=== PATIENT | female | born 1935 | race Caucasian/White ===

== ENCOUNTER 2017-12-31 19:29 | Inpatient (IN) | payer MEDICARE, MEDICAID ==
[~2017-12-31] VITALS: Ht 5200 cm; Wt 50.5 kg
[~2017-12-31 19:29] MED LIST: AZIT250T PO
[2017-12-31] MEDS ORDERED: LOSA1TAB36 PO (19:39)
[2017-12-31] MEDS ORDERED: ipratropium/albuterol 3ml nebule NEB ONE (22:55)
[2017-12-31] MEDS ORDERED: methylPREDNISolone sod succ 125mg/2ml vial IV ONE (22:55)
[2017-12-31 23:28] LABS: BASOPHILS # (AUTO) 0.1 X10'3 (0-0.2); BASOPHILS % (AUTO) 0.6 % (0-1); EOSINOPHILS % (AUTO) 0 % (0-6); HEMATOCRIT 41.8 % (35.0-45.0); HEMOGLOBIN 14.1 g/dl (12.0-16.0); LYMPHOCYTES # (AUTO) 1.5 X10'3 (1.1-4.8); LYMPHOCYTES % (AUTO) 10.9 % (21-51); MEAN CORPUSCULAR HEMOGLOBIN 28.3 PG (27.0-31.0); MEAN CORPUSCULAR HGB CONC 33.8 % (33.0-36.5); MEAN CORPUSCULAR VOLUME 83.8 FL (78-98); MEAN PLATELET VOLUME 9.3 FL (7.4-10.4); MONOCYTES # (AUTO) 0.8 X10'3 (0-0.9); MONOCYTES % (AUTO) 6.1 % (2-12); NEUTROPHILS # (AUTO) 11.4 X10'3 (1.8-7.7); NEUTROPHILS % (AUTO) 82.4 % (42-75); PLATELET COUNT 182 X10'3 (140-440); RED BLOOD COUNT 4.99 X10'6 (4.20-5.60); RED CELL DISTRIBUTION WIDTH 21.5 % (11.5-14.5); WHITE BLOOD COUNT 13.9 X10'3 (4.5-11.0)
[2017-12-31 23:40] LABS: PARTIAL THROMBOPLASTIN TIME 30 SECONDS (22-32); PROTHROMBIN TIME 10.4 SECONDS (9.0-12.0)
[2017-12-31] MEDS ORDERED: levoFLOXACIN-Levaquin 500mg/D5 100 ML IV ONE (23:40)
[2017-12-31 23:46] LABS: ALANINE AMINOTRANSFERASE 19 U/L (12-78); ALBUMIN 3.2 G/DL (3.4-5.0); ALBUMIN/GLOBULIN RATIO 0.7 (1.1-1.5); ALKALINE PHOSPHATASE 104 IU/L (46-116); ANION GAP 12 (8-16); ASPARTATE AMINO TRANSFERASE 19 U/L (10-37); BILIRUBIN,TOTAL 0.9 MG/DL (0.1-1.0); BLOOD UREA NITROGEN 32 MG/DL (7-18); BUN/CREATININE RATIO 29.1 (6.6-38.0); CALCIUM 9.9 MG/DL (8.5-10.1); CHLORIDE 95 MMOL/L (99-107); CREATINE KINASE 16 U/L (26-192); GLUCOSE 109 MG/DL (70-104); POTASSIUM 3.1 MMOL/L (3.5-5.1); SODIUM 134 MMOL/L (135-145); TOTAL PROTEIN 7.8 G/DL (6.4-8.2); eGFR 48 ML/MIN
[2018-01-01] MEDS ORDERED: normal saline 1000ML IV soln IVB ONE (00:20)
[2018-01-01] MEDS ORDERED: magnesium hydroxide 30ml (MOM) UD suspension PO PRN (00:45)
[2018-01-01] MEDS ORDERED: magnesium 2GM in 50ml NS 50 ML IV PRN (00:45)
[2018-01-01] MEDS ORDERED: HYDROcodone/acetaminophen 5mg/325mg tablet PO PRN (00:45)
[2018-01-01] MEDS ORDERED: acetaminophen 325mg tablet PO PRN (00:45)
[2018-01-01] MEDS ORDERED: HYDROcodone/acetaminophen 10/325mg tab PO PRN (00:45)
[2018-01-01] MEDS ORDERED: mag hydrox/Alum hydrox/simeth 30ml oral suspension PO PRN (00:45)
[2018-01-01] MEDS ORDERED: ondansetron/PF 4mg/2ml inj IV PRN (00:45)
[2018-01-01] MEDS ORDERED: magnesium 4gm in 100ml NS 100 ML IV PRN (00:45)
[2018-01-01] MEDS ORDERED: potassium Cl 40MEQ/NS 500ml 500 ML IV PRN ×2 (00:45)
[2018-01-01] MEDS ORDERED: potassium Cl 20 mEq SR tablet PO PRN (00:45)
[2018-01-01] MEDS ORDERED: magnesium Cl slow-release 64mg tablet PO PRN (00:45)
[2018-01-01] MEDS ORDERED: CefTRIAXone 2gm/NS 100ml IVPB 100 ML IV SCH (01:07)
[2018-01-01 01:43] LABS: ANISOCYTOSIS 3+; TOTAL CELLS COUNTED 100
[2018-01-01 01:46] LABS: TOXIC GRANULATION 1+
[2018-01-01] MEDS ORDERED: CefTRIAXone 2gm/NS 100ml IVPB 100 ML IV ONE (02:39)
[2018-01-01] MEDS: potassium Cl 20mEq in NS 1,000 ML IV SCH ×3 (02:57→14:44)
[2018-01-01 07:18] LABS: PLATELET ESTIMATE NORMAL
[2018-01-01] MEDS: potassium Cl 20 mEq SR tablet PO PRN ×2 (08:24→14:43)
[2018-01-01] MEDS: lactobacillus rhamnosus 10,000 MMU CELLS/CAPSULE PO SCH ×2 (08:25→19:55)
[2018-01-01] MEDS: heparin, porcine 5000 units/ml vial SQ SCH ×2 (08:25→19:57)
[2018-01-01] MEDS: K and/or MAG REPLACEMENT MC SCH (08:25)
[2018-01-01 09:26] LABS: CLARITY,URINE CLOUDY (Clear); GLUCOSE, URINE NEGATIVE (Neg); KETONES,URINE NEGATIVE (Neg); LEUKOCYTE ESTERASE ,URINE MODERATE (Neg); NITRITES, URINE NEGATIVE (Neg); OCCULT BLOOD,URINE NEGATIVE (Neg); PROTEIN,URINE TRACE mg/dl (Neg); UROBILINOGEN,URINE 0.2 E.U/dL (0.2-1.0)
[2018-01-01 09:29] LABS: COLOR,URINE DARK YELLOW (Yellow); UA COLLECTION TYPE CLN CATCH MIDSTREAM
[2018-01-01 09:33] LABS: BACTERIA,URINE 1+ /HPF (Neg); MUCUS STRANDS FEW /LPF (Neg); RBC,URINE NONE SEEN /HPF (0-2); RENAL CELLS, URINE FEW /HPF; SQUAMOUS EPITHELIAL CELL,UR FEW /LPF (FEW); WBC CLUMPS,URINE MODERATE /HPF (NEGATIVE); WBC,URINE 50-100 /HPF (0-4)
[2018-01-01] MEDS ORDERED: levoFLOXACIN 750MG TABLET PO SCH (11:00)
[2018-01-01] MEDS: midodrine 5mg tablet PO SCH (16:55)
[2018-01-01] MEDS: clindamycin phosphate inj 300 MG in dextrose 5%-water 50ml 48 ML IV SCH (19:54)
[2018-01-01] MEDS: methylPREDNISolone sod succ/PF 40mg inj. IV SCH (19:55)
[2018-01-01 21:30] VITALS: BP 107/40
[2018-01-02] VITALS: BP 102/58
[2018-01-02] MEDS: midodrine 5mg tablet PO SCH ×4 (00:19→23:48)
[2018-01-02] MEDS: clindamycin phosphate inj 300 MG in dextrose 5%-water 50ml 48 ML IV SCH ×4 (02:00→21:45)
[2018-01-02] MEDS: methylPREDNISolone sod succ/PF 40mg inj. IV SCH ×4 (03:10→21:45)
[2018-01-02] MEDS ORDERED: CLINDAMYCIN IV ONE (03:30)
[2018-01-02] MEDS ORDERED: [UNRECOGNIZED DRUG - OTHER] IV ONE (03:30)
[2018-01-02 05:27] LABS: BASOPHILS # (AUTO) 0.1 X10'3 (0-0.2); BASOPHILS % (AUTO) 0.4 % (0-1); EOSINOPHILS % (AUTO) 0 % (0-6); HEMATOCRIT 40.7 % (35.0-45.0); HEMOGLOBIN 13.7 g/dl (12.0-16.0); LYMPHOCYTES # (AUTO) 1.1 X10'3 (1.1-4.8); LYMPHOCYTES % (AUTO) 7.4 % (21-51); MEAN CORPUSCULAR HEMOGLOBIN 28.4 PG (27.0-31.0); MEAN CORPUSCULAR HGB CONC 33.7 % (33.0-36.5); MEAN CORPUSCULAR VOLUME 84.1 FL (78-98); MEAN PLATELET VOLUME 10.9 FL (7.4-10.4); MONOCYTES # (AUTO) 0.3 X10'3 (0-0.9); MONOCYTES % (AUTO) 2.1 % (2-12); NEUTROPHILS # (AUTO) 13.7 X10'3 (1.8-7.7); NEUTROPHILS % (AUTO) 90.1 % (42-75); PLATELET COUNT 184 X10'3 (140-440); RED BLOOD COUNT 4.84 X10'6 (4.20-5.60); RED CELL DISTRIBUTION WIDTH 21.7 % (11.5-14.5); WHITE BLOOD COUNT 15.3 X10'3 (4.5-11.0)
[2018-01-02 05:30] LABS: ALANINE AMINOTRANSFERASE 22 U/L (12-78); ALBUMIN 2.5 G/DL (3.4-5.0); ALBUMIN/GLOBULIN RATIO 0.6 (1.1-1.5); ALKALINE PHOSPHATASE 101 IU/L (46-116); ANION GAP 9 (8-16); ASPARTATE AMINO TRANSFERASE 28 U/L (10-37); BILIRUBIN,TOTAL 0.3 MG/DL (0.1-1.0); BLOOD UREA NITROGEN 30 MG/DL (7-18); BUN/CREATININE RATIO 44.8 (6.6-38.0); CALCIUM 9.2 MG/DL (8.5-10.1); CHLORIDE 101 MMOL/L (99-107); CREATININE 0.67 MG/DL (0.40-0.90); GLUCOSE 137 MG/DL (70-104); MAGNESIUM 2.2 MG/DL (1.5-2.4); POTASSIUM 4.6 MMOL/L (3.5-5.1); SODIUM 135 MMOL/L (135-145); TOTAL CARBON DIOXIDE 25.5 MMOL/L (24-32); eGFR 84 ML/MIN
[2018-01-02 07:00] VITALS: BP 111/51
[2018-01-02 07:19] LABS: PLATELET ESTIMATE NORMAL; TOTAL CELLS COUNTED 100
[2018-01-02 07:20] LABS: ANISOCYTOSIS 3+; TOXIC GRANULATION 1+
[2018-01-02] MEDS: azithromycin 250mg tablet PO SCH (07:33)
[2018-01-02] MEDS: lactobacillus rhamnosus 10,000 MMU CELLS/CAPSULE PO SCH ×2 (07:33→21:45)
[2018-01-02] MEDS: CefTRIAXone 2gm/D5W 50ml 50 ML IV SCH (07:34)
[2018-01-02] MEDS: heparin, porcine 5000 units/ml vial SQ SCH ×2 (07:34→21:47)
[2018-01-02] MEDS: K and/or MAG REPLACEMENT MC SCH (07:59)
[2018-01-02] MEDS ORDERED: levoFLOXACIN 750MG TABLET PO SCH (11:00)
[2018-01-02 12:12] VITALS: BP 90/42
[2018-01-02] MEDS ORDERED: MULT-1085 PO (16:18)
[2018-01-02] MEDS ORDERED: LOSA1TAB36 PO (16:18)
[2018-01-02 18:00] VITALS: BP 104/46
[2018-01-02 23:30] VITALS: BP 105/50
[2018-01-02] MEDS: benzocaine/menthol oral lozeng 1 EACH BOX MM PRN (23:50)
[2018-01-03] MEDS: clindamycin phosphate inj 300 MG in dextrose 5%-water 50ml 48 ML IV SCH ×4 (02:00→19:12)
[2018-01-03] MEDS: methylPREDNISolone sod succ/PF 40mg inj. IV SCH ×4 (02:00→19:12)
[2018-01-03 05:12] LABS: BASOPHILS % (AUTO) 0.2 % (0-1); EOSINOPHILS # (AUTO) 0.1 X10'3 (0-0.9); EOSINOPHILS % (AUTO) 0.5 % (0-6); HEMATOCRIT 38.5 % (35.0-45.0); HEMOGLOBIN 12.9 g/dl (12.0-16.0); LYMPHOCYTES % (AUTO) 5.3 % (21-51); MEAN CORPUSCULAR HEMOGLOBIN 28.4 PG (27.0-31.0); MEAN CORPUSCULAR HGB CONC 33.6 % (33.0-36.5); MEAN CORPUSCULAR VOLUME 84.6 FL (78-98); MEAN PLATELET VOLUME 11.2 FL (7.4-10.4); MONOCYTES # (AUTO) 0.2 X10'3 (0-0.9); MONOCYTES % (AUTO) 1.3 % (2-12); NEUTROPHILS # (AUTO) 17.3 X10'3 (1.8-7.7); NEUTROPHILS % (AUTO) 92.7 % (42-75); PLATELET COUNT 204 X10'3 (140-440); RED BLOOD COUNT 4.55 X10'6 (4.20-5.60); RED CELL DISTRIBUTION WIDTH 21.5 % (11.5-14.5); WHITE BLOOD COUNT 18.6 X10'3 (4.5-11.0)
[2018-01-03 05:32] LABS: ALANINE AMINOTRANSFERASE 35 U/L (12-78); ALBUMIN 2.4 G/DL (3.4-5.0); ALBUMIN/GLOBULIN RATIO 0.6 (1.1-1.5); ALKALINE PHOSPHATASE 106 IU/L (46-116); ANION GAP 7 (8-16); ASPARTATE AMINO TRANSFERASE 32 U/L (10-37); BILIRUBIN,TOTAL 0.2 MG/DL (0.1-1.0); BLOOD UREA NITROGEN 40 MG/DL (7-18); BUN/CREATININE RATIO 54.1 (6.6-38.0); CALCIUM 9.2 MG/DL (8.5-10.1); CHLORIDE 104 MMOL/L (99-107); CREATININE 0.74 MG/DL (0.40-0.90); GLUCOSE 136 MG/DL (70-104); MAGNESIUM 2.2 MG/DL (1.5-2.4); POTASSIUM 4.7 MMOL/L (3.5-5.1); SODIUM 136 MMOL/L (135-145); TOTAL CARBON DIOXIDE 24.8 MMOL/L (24-32); TOTAL PROTEIN 6.4 G/DL (6.4-8.2); eGFR 75 ML/MIN
[2018-01-03] MEDS: K and/or MAG REPLACEMENT MC SCH (07:26)
[2018-01-03 07:38] VITALS: BP 96/64
[2018-01-03] MEDS: CefTRIAXone 2gm/D5W 50ml 50 ML IV SCH (07:49)
[2018-01-03] MEDS: lactobacillus rhamnosus 10,000 MMU CELLS/CAPSULE PO SCH ×2 (07:50→19:12)
[2018-01-03] MEDS: midodrine 5mg tablet PO SCH ×3 (07:50→23:18)
[2018-01-03] MEDS: azithromycin 250mg tablet PO SCH (07:50)
[2018-01-03] MEDS: heparin, porcine 5000 units/ml vial SQ SCH ×2 (07:53→19:12)
[2018-01-03 08:12] LABS: LARGE PLATELETS FEW; PLATELET ESTIMATE NORMAL
[2018-01-03 13:11] VITALS: BP 98/50
[2018-01-03 15:45] LABS: PROTHROMBIN TIME 10.3 SECONDS (9.0-12.0)
[2018-01-03 19:35] VITALS: BP 128/60
[2018-01-03] MEDS: benzocaine/menthol oral lozeng 1 EACH BOX MM PRN (21:15)
[2018-01-04] VITALS (20 sets, daily range): BP systolic 118–165; BP diastolic 48–98
[2018-01-04] MEDS: clindamycin phosphate inj 300 MG in dextrose 5%-water 50ml 48 ML IV SCH ×4 (01:09→20:02)
[2018-01-04] MEDS: methylPREDNISolone sod succ/PF 40mg inj. IV SCH ×4 (01:09→19:58)
[2018-01-04 05:11] LABS: BASOPHILS % (AUTO) 0.2 % (0-1); EOSINOPHILS % (AUTO) 0 % (0-6); HEMOGLOBIN 13.8 g/dl (12.0-16.0); LYMPHOCYTES # (AUTO) 0.9 X10'3 (1.1-4.8); MEAN CORPUSCULAR HEMOGLOBIN 28.5 PG (27.0-31.0); MEAN CORPUSCULAR HGB CONC 33.7 % (33.0-36.5); MEAN CORPUSCULAR VOLUME 84.5 FL (78-98); MEAN PLATELET VOLUME 10.5 FL (7.4-10.4); MONOCYTES # (AUTO) 0.2 X10'3 (0-0.9); MONOCYTES % (AUTO) 1.2 % (2-12); NEUTROPHILS # (AUTO) 11.7 X10'3 (1.8-7.7); NEUTROPHILS % (AUTO) 91.6 % (42-75); PLATELET COUNT 214 X10'3 (140-440); RED BLOOD COUNT 4.85 X10'6 (4.20-5.60); WHITE BLOOD COUNT 12.8 X10'3 (4.5-11.0)
[2018-01-04 05:37] LABS: ALANINE AMINOTRANSFERASE 36 U/L (12-78); ALBUMIN 2.4 G/DL (3.4-5.0); ALBUMIN/GLOBULIN RATIO 0.6 (1.1-1.5); ALKALINE PHOSPHATASE 101 IU/L (46-116); ANION GAP 9 (8-16); ASPARTATE AMINO TRANSFERASE 27 U/L (10-37); BILIRUBIN,TOTAL 0.2 MG/DL (0.1-1.0); BLOOD UREA NITROGEN 30 MG/DL (7-18); BUN/CREATININE RATIO 39.5 (6.6-38.0); CHLORIDE 101 MMOL/L (99-107); CREATININE 0.76 MG/DL (0.40-0.90); GLUCOSE 128 MG/DL (70-104); MAGNESIUM 2.4 MG/DL (1.5-2.4); POTASSIUM 4.7 MMOL/L (3.5-5.1); SODIUM 136 MMOL/L (135-145); TOTAL CARBON DIOXIDE 26.5 MMOL/L (24-32); TOTAL PROTEIN 6.5 G/DL (6.4-8.2); eGFR 73 ML/MIN
[2018-01-04] MEDS: CefTRIAXone 2gm/D5W 50ml 50 ML IV SCH (07:25)
[2018-01-04] MEDS: lactobacillus rhamnosus 10,000 MMU CELLS/CAPSULE PO SCH ×2 (07:26→20:01)
[2018-01-04] MEDS: azithromycin 250mg tablet PO SCH (07:26)
[2018-01-04] MEDS: midodrine 5mg tablet PO SCH ×2 (07:26→15:58)
[2018-01-04] MEDS: heparin, porcine 5000 units/ml vial SQ SCH ×3 (07:26→20:06)
[2018-01-04] MEDS: K and/or MAG REPLACEMENT MC SCH (07:27)
[2018-01-04 09:14] LABS: ANISOCYTOSIS 3+; PLATELET ESTIMATE NORMAL; TOTAL CELLS COUNTED 100
[2018-01-04 09:15] LABS: LARGE PLATELETS FEW
[2018-01-04 09:16] LABS: TOXIC GRANULATION 1+
[2018-01-04 09:17] LABS: TOXIC VACUOLATION FEW
[2018-01-04] MEDS ORDERED: midazolam 2 mg/2 ml injection IV PRN (09:25)
[2018-01-04] MEDS ORDERED: LIDOcaine 1%/PF (10mg/ml) 5ml vial SQ ONE (09:25)
[2018-01-04] MEDS ORDERED: fentaNYL/PF 50MCG/1 ML 2ML syringe IV PRN (09:25)
[2018-01-04] MEDS ORDERED: fentaNYL/PF 50MCG/1 ML 2ML syringe ONE (09:49)
[2018-01-04] MEDS ORDERED: midazolam 2 mg/2 ml injection ONE (09:49)
[2018-01-05] VITALS: BP 138/65
[2018-01-05] MEDS: midodrine 5mg tablet PO SCH ×3 (00:51→16:53)
[2018-01-05] MEDS: temazepam 15mg capsule PO PRN (01:07)
[2018-01-05] MEDS: methylPREDNISolone sod succ/PF 40mg inj. IV SCH ×4 (02:34→20:47)
[2018-01-05] MEDS: clindamycin phosphate inj 300 MG in dextrose 5%-water 50ml 48 ML IV SCH ×4 (02:36→20:50)
[2018-01-05 04:35] LABS: ALANINE AMINOTRANSFERASE 31 U/L (12-78); ALBUMIN 2.4 G/DL (3.4-5.0); ALBUMIN/GLOBULIN RATIO 0.6 (1.1-1.5); ALKALINE PHOSPHATASE 90 IU/L (46-116); ANION GAP 6 (8-16); ASPARTATE AMINO TRANSFERASE 18 U/L (10-37); BILIRUBIN,TOTAL 0.2 MG/DL (0.1-1.0); BLOOD UREA NITROGEN 28 MG/DL (7-18); BUN/CREATININE RATIO 32.2 (6.6-38.0); CALCIUM 8.6 MG/DL (8.5-10.1); CHLORIDE 102 MMOL/L (99-107); CREATININE 0.87 MG/DL (0.40-0.90); GLUCOSE 148 MG/DL (70-104); MAGNESIUM 2.2 MG/DL (1.5-2.4); POTASSIUM 4.7 MMOL/L (3.5-5.1); SODIUM 137 MMOL/L (135-145); TOTAL CARBON DIOXIDE 29.5 MMOL/L (24-32); TOTAL PROTEIN 6.1 G/DL (6.4-8.2); eGFR 62 ML/MIN
[2018-01-05 04:36] LABS: BASOPHILS % (AUTO) 0.2 % (0-1); EOSINOPHILS % (AUTO) 0.1 % (0-6); HEMATOCRIT 40.5 % (35.0-45.0); HEMOGLOBIN 13.8 g/dl (12.0-16.0); LYMPHOCYTES # (AUTO) 0.9 X10'3 (1.1-4.8); LYMPHOCYTES % (AUTO) 9.6 % (21-51); MEAN CORPUSCULAR HEMOGLOBIN 28.2 PG (27.0-31.0); MEAN CORPUSCULAR VOLUME 83.1 FL (78-98); MEAN PLATELET VOLUME 9.6 FL (7.4-10.4); MONOCYTES # (AUTO) 0.1 X10'3 (0-0.9); MONOCYTES % (AUTO) 1.3 % (2-12); NEUTROPHILS # (AUTO) 8.3 X10'3 (1.8-7.7); NEUTROPHILS % (AUTO) 88.8 % (42-75); PLATELET COUNT 220 X10'3 (140-440); RED BLOOD COUNT 4.87 X10'6 (4.20-5.60); RED CELL DISTRIBUTION WIDTH 21.3 % (11.5-14.5); WHITE BLOOD COUNT 9.4 X10'3 (4.5-11.0)
[2018-01-05 05:53] LABS: TOTAL CELLS COUNTED 100; TOXIC GRANULATION 1+; TOXIC VACUOLATION FEW
[2018-01-05 05:54] LABS: PLATELET ESTIMATE NORMAL
[2018-01-05] MEDS: levoTHYROXINE 25mcg tablet PO SCH (07:00)
[2018-01-05] MEDS: K and/or MAG REPLACEMENT MC SCH (08:00)
[2018-01-05] MEDS: CefTRIAXone 2gm/D5W 50ml 50 ML IV SCH (08:00)
[2018-01-05] MEDS: lactobacillus rhamnosus 10,000 MMU CELLS/CAPSULE PO SCH ×2 (08:00→20:52)
[2018-01-05] MEDS: azithromycin 250mg tablet PO SCH (08:00)
[2018-01-05] MEDS: heparin, porcine 5000 units/ml vial SQ SCH ×2 (08:00→20:53)
[2018-01-05 09:07] VITALS: BP 145/69
[2018-01-05 11:35] VITALS: BP 127/53
[2018-01-05 12:02] VITALS: BP 122/55
[2018-01-05 20:00] VITALS: BP 143/72
[2018-01-06] VITALS: BP 143/65
[2018-01-06] MEDS: temazepam 15mg capsule PO PRN (00:32)
[2018-01-06] MEDS: midodrine 5mg tablet PO SCH ×3 (00:32→16:39)
[2018-01-06] MEDS: methylPREDNISolone sod succ/PF 40mg inj. IV SCH ×3 (02:06→14:00)
[2018-01-06] MEDS: clindamycin phosphate inj 300 MG in dextrose 5%-water 50ml 48 ML IV SCH ×3 (02:08→14:00)
[2018-01-06 05:11] LABS: BASOPHILS % (AUTO) 0.1 % (0-1); EOSINOPHILS % (AUTO) 0 % (0-6); HEMATOCRIT 42.3 % (35.0-45.0); HEMOGLOBIN 14.2 g/dl (12.0-16.0); LYMPHOCYTES # (AUTO) 1.1 X10'3 (1.1-4.8); LYMPHOCYTES % (AUTO) 9.2 % (21-51); MEAN CORPUSCULAR HEMOGLOBIN 28.2 PG (27.0-31.0); MEAN CORPUSCULAR HGB CONC 33.5 % (33.0-36.5); MEAN CORPUSCULAR VOLUME 84.1 FL (78-98); MONOCYTES # (AUTO) 0.2 X10'3 (0-0.9); MONOCYTES % (AUTO) 1.9 % (2-12); NEUTROPHILS # (AUTO) 10.2 X10'3 (1.8-7.7); NEUTROPHILS % (AUTO) 88.8 % (42-75); PLATELET COUNT 243 X10'3 (140-440); RED BLOOD COUNT 5.03 X10'6 (4.20-5.60); RED CELL DISTRIBUTION WIDTH 21.4 % (11.5-14.5); WHITE BLOOD COUNT 11.5 X10'3 (4.5-11.0)
[2018-01-06 05:37] LABS: ALANINE AMINOTRANSFERASE 29 U/L (12-78); ALBUMIN 2.4 G/DL (3.4-5.0); ALBUMIN/GLOBULIN RATIO 0.6 (1.1-1.5); ALKALINE PHOSPHATASE 84 IU/L (46-116); ANION GAP 6 (8-16); ASPARTATE AMINO TRANSFERASE 19 U/L (10-37); BILIRUBIN,TOTAL 0.2 MG/DL (0.1-1.0); BLOOD UREA NITROGEN 28 MG/DL (7-18); BUN/CREATININE RATIO 33.3 (6.6-38.0); CALCIUM 8.2 MG/DL (8.5-10.1); CHLORIDE 99 MMOL/L (99-107); CREATININE 0.84 MG/DL (0.40-0.90); GLUCOSE 130 MG/DL (70-104); MAGNESIUM 2.3 MG/DL (1.5-2.4); POTASSIUM 4.3 MMOL/L (3.5-5.1); SODIUM 136 MMOL/L (135-145); TOTAL CARBON DIOXIDE 31.4 MMOL/L (24-32); TOTAL PROTEIN 6.2 G/DL (6.4-8.2); eGFR 65 ML/MIN
[2018-01-06] MEDS: levoTHYROXINE 25mcg tablet PO SCH (07:53)
[2018-01-06] MEDS: K and/or MAG REPLACEMENT MC SCH (08:00)
[2018-01-06] MEDS: CefTRIAXone 2gm/D5W 50ml 50 ML IV SCH (08:01)
[2018-01-06] MEDS: lactobacillus rhamnosus 10,000 MMU CELLS/CAPSULE PO SCH (08:06)
[2018-01-06] MEDS: azithromycin 250mg tablet PO SCH (08:07)
[2018-01-06] MEDS: heparin, porcine 5000 units/ml vial SQ SCH (08:10)
[2018-01-06 11:05] VITALS: BP 141/67
[2018-01-06 11:30] VITALS: BP 107/46
[2018-01-06] MEDS ORDERED: CLIN-80 PO (16:19)
[2018-01-06] MEDS ORDERED: PRED10TA23 PO (16:19)
[2018-01-06] MEDS ORDERED: AZIT250T27 PO (16:19)
[2018-01-06] MEDS ORDERED: IPRA3AMP9 IH (16:19)
[2018-01-06] MEDS ORDERED: LEVO50TA8 PO (16:19)
== END 2018-01-06 17:23 | disposition home or self-care (01) | DRG 871 ==
LOC: ER 19:29 → ED HOLD 01-01 00:45 → EDBEDREQ 01-01 18:30 → SUR 3N 01-01 21:14
PROVIDERS: ADMIT Internal Medicine; ATTEND Family Medicine
PROC: 0BBK3ZX Excision of Right Lung, Percutaneous Approach, Diagnostic (ICD-10-PCS; principal; 2018-01-04)
DX: A41.9 Sepsis, unspecified organism (principal); J18.9 Pneumonia, unspecified organism; N17.9 Acute kidney failure, unspecified; J44.0 Chronic obstructive pulmonary disease with (acute) lower respiratory infection; Z99.81 Dependence on supplemental oxygen; C34.2 Malignant neoplasm of middle lobe, bronchus or lung; N39.0 Urinary tract infection, site not specified; E87.6 Hypokalemia; E03.9 Hypothyroidism, unspecified; J20.9 Acute bronchitis, unspecified; R09.02 Hypoxemia; R19.7 Diarrhea, unspecified; I10 Essential (primary) hypertension; K57.30 Diverticulosis of large intestine without perforation or abscess without bleeding; K80.20 Calculus of gallbladder without cholecystitis without obstruction; Z90.2 Acquired absence of lung [part of]; Z98.51 Tubal ligation status; Z88.0 Allergy status to penicillin; Z88.8 Allergy status to other drugs, medicaments and biological substances; Z79.899 Other long term (current) drug therapy; Z87.891 Personal history of nicotine dependence; Z85.819 Personal history of malignant neoplasm of unspecified site of lip, oral cavity, and pharynx; Z85.850 Personal history of malignant neoplasm of thyroid; Z92.3 Personal history of irradiation
CPT/HCPCS: 32405; 36415; 71045; 71250; 74176; 77012; 80053; 81001; 82550; 83605; 83735; 84439; 84443; 84484; 85025; 85610; 85730; 87040; 87070; 87088; 87324; 87449; 88173; 88305; 88341; 88342; 93005; 94640; 94760; 96365; 99152; 99153; 99285; A6212; A6213; A6258; J0696; J1644; J1956; J2250; J2920; J2930; J3010; J3490; J7030; J7060